=== PATIENT | female | born 1985 | race Two or more races ===

== ENCOUNTER 2022-04-01 10:25 | Outpatient (REF) | payer OTHER, SELFPAY ==
[2022-04-01 12:38] LABS: Anion Gap 13 (12-20); Blood Urea Nitrogen 13 mg/dL (9-16); Calcium 9.1 mg/dL (8.4-10.2); Carbon Dioxide 25 mmol/L (22-29); Chloride 107 mmol/L (96-108); Estimated Glomerular Filt Rate > 60; Glucose Fasting 76 mg/dL (60-99); Potassium 4.1 mmol/L (3.3-5.1); Sodium 141 mmol/L (135-145)
[2022-04-01 13:44] LABS: Folate 4.4 ng/mL (> or = 4.0); Vitamin B12 250 pg/mL (200-900)
[2022-04-02 16:19] LABS: Lyme Abs Screen <0.90 index
[2022-04-03 11:38] LABS: IgA 578 mg/dL (47-310); IgG 1657 mg/dL (600-1640); IgM 140 mg/dL (50-300)
[2022-04-05 21:38] LABS: Alpha-Tocopherol 7.4 mg/L (5.7-19.9); Beta-Gamma Tocopherol <1.0 mg/L (<=4.3)
== END 2022-04-01 10:26 | disposition home or self-care (01) ==
LOC: HO.LAB 10:25
PROVIDERS: Psychiatry & Neurology Neurology; Visit Provider Internal Medicine
DX: G62.9 Polyneuropathy, unspecified (principal)
CPT/HCPCS: 36415; 80048; 82607; 82746; 82784; 84446; 86334; 86617; 86618